=== PATIENT | female | born 1985 | race Caucasian/White ===

== ENCOUNTER 2022-06-21 23:38 | Inpatient (IN) ==
[2022-06-22] MEDS ORDERED: OXYTOCIN 30 UNITS/500 ML BAG IV PRN (00:07)
[2022-06-22] MEDS ORDERED: LACTATED RINGER'S 1,000 ML IV PRN (00:07)
[2022-06-22] MEDS ORDERED: LIDOCAINE 1% LOCAL 20 ML VIAL INFIL PRN (00:07)
[2022-06-22 00:39] LABS: Hematocrit (blood only) 32.3 % (37.0-47.0); Hemoglobin 10.3 g/dl (12.0-16.0); Mean Corpuscular Hemoglobin 25.4 pg (25.0-34.0); Mean Corpuscular Hgb Conc 31.9 g/dL (32.0-36.0); Mean Corpuscular Volume 79.8 fL (80.0-100.0); Mean Platelet Volume 11.9 fL (9.4-12.4); Platelet Count 230 K/uL (130-400); RDW Coefficient of Variation 15.1 % (11.5-14.5); RDW Standard Deviation 43.2 fL (36.4-46.3); Red Blood Count 4.05 M/uL (4.20-5.40); White Blood Count 14.66 K/ul (4.8-10.8)
[2022-06-22] MEDS: OXYTOCIN 30 UNITS/500 ML BAG IV PRN ×2 (02:05→02:35)
--- NOTE | 2022-06-22 02:37 | Delivery Summary ---
Vaginal Delivery Summary Date of Service June 22, 2022 Vaginal Delivery Summary and 3rd Degree LAC Spontaneous vaginal delivery patient arrived in active labor spontaneously and did not request pain medication 38+ weeks first baby records reviewed she progressed to fully dilated and then pushed for a short period of time delivering baby in occiput anterior position once the head was delivered there was a double nuchal cord that was tight this was clamped and cut prior to delivery of the body cord was then looped from the head gentle traction on the baby no excessive force easy delivery live vigorous female infant cord had already been clamped cord blood obtained placenta removed with gentle traction on inspection there was some significant tearing specifically 1/3 degree. Local anesthetic was injected into the appropriate areas and then 3-0 Vicryl for repair including repair of the rectal sphincter there was no extension into the mucosa vaginal bleeding from the uterus increase at this stage we did increase the Pitocin and then injected 0.25 mg of Hemabate into the cervix taking care to avoid intravascular injection this improved bleeding at the end of the procedure sponge instrument counts correct estimated blood loss 400 mL [facility] Vaginal Delivery Charge Delivery Type Details: and 3rd Degree LAC
[2022-06-22] MEDS ORDERED: oxyCODONE/ACETAMINOPHEN 5mg/325mg TAB PO PRN (02:58)
[2022-06-22] MEDS ORDERED: DIPHTHERIA/TETANUS/PERTUSSIS 0.5mL SYR/VIAL (Age 7+yrs) IM ONE (02:58)
[2022-06-22] MEDS ORDERED: HYDROCORTISONE ACETATE 25 MG SUPP PR PRN (02:58)
[2022-06-22] MEDS ORDERED: BENZOCAINE 20% AER SPR 82.5 GM CAN EXT PRN (02:58)
[2022-06-22] MEDS ORDERED: CARBOPROST TROMETHAMINE 250 MCG/ML AMPUL IM ONE (02:58)
[2022-06-22] MEDS ORDERED: bisacodyL 10 MG SUPP PR PRN (02:58)
[2022-06-22] MEDS: IBUPROFEN 600 MG TAB PO PRN ×3 (03:18→12:51)
[2022-06-22 07:16] LABS: Hematocrit (blood only) 22.7 % (37.0-47.0); Hemoglobin 7.1 g/dl (12.0-16.0); Mean Corpuscular Hemoglobin 25.5 pg (25.0-34.0); Mean Corpuscular Hgb Conc 31.3 g/dL (32.0-36.0); Mean Corpuscular Volume 81.7 fL (80.0-100.0); Mean Platelet Volume 11.5 fL (9.4-12.4); Platelet Count 193 K/uL (130-400); RDW Coefficient of Variation 15.1 % (11.5-14.5); RDW Standard Deviation 45.4 fL (36.4-46.3); Red Blood Count 2.78 M/uL (4.20-5.40); White Blood Count 27.24 K/ul (4.8-10.8)
[2022-06-22] MEDS ORDERED: SODIUM CHLORIDE 0.9% 250 ML IV PRN (07:32)
[2022-06-22 07:43] LABS: Basophils # (auto) 0.04 K/uL (0-0.2); Basophils % (auto) 0.1 %; Eosinophils # (auto) 0.01 K/uL (0-0.50); Immature Granulocytes # (auto) 0.23 K/uL (0.01-0.20); Immature Granulocytes % (auto) 0.8 %; Lymphocytes % (auto) 7.3 %; Monocytes # (auto) 1.37 K/uL (0.11-0.59); Neutrophils # (auto) 23.59 K/uL (1.40-6.50); Neutrophils % (auto) 86.8 %; Polychromasia 1+
--- NOTE | 2022-06-22 07:43 | Obstetrical Progress Note ---
Date of Service June 22, 2022 Patient had approximately 400 mL of blood loss at delivery largely due to uterine atony her blood count this morning is 7.1 hemoglobin however she feels very uncomfortable and lightheaded when she sits up or stands and her heart rate has been running around 120 I did discuss and recommend the option of a blood transfusion as she was symptomatic with her low hemoglobin also it is also likely lower than it really appears that she had not only nausea but diarrhea prior to the delivery and then the blood loss so it might be hemoconcentrated at this stage I discussed risks of blood transfusion patient accepts we will plan to transfuse 2 units of packed red blood cells Results & Data Vital Signs (Past 12 Hours) Vital Signs Temp Pulse Resp BP Pulse Ox 06/22/22 00:25 97.9 F 20 06/22/22 07:38 113 H 100 06/22/22 07:33 120 H 100 06/22/22 07:28 121 H 100 06/22/22 07:27 118 H 148/70 H 06/22/22 07:23 119 H 100 06/22/22 07:18 116 H 100 06/22/22 07:13 100 06/22/22 07:13 107 H 06/22/22 07:13 120 H 140/69 06/22/22 07:08 124 H 100 06/22/22 07:03 123 H 100 06/22/22 06:58 100 06/22/22 06:58 118 H 06/22/22 06:58 122 H 169/89 H 06/22/22 06:53 113 H 100 06/22/22 06:48 127 H 100 06/22/22 06:43 118 H 100 06/22/22 06:42 121 H 128/59 L 06/22/22 06:38 115 H 100 06/22/22 06:33 116 H 100 06/22/22 06:28 116 H 100 06/22/22 06:27 113 H 125/67 06/22/22 06:23 128 H 100 06/22/22 06:18 119 H 100 06/22/22 06:12 137 H 120/65 06/22/22 05:57 106 H 123/72 06/22/22 05:42 99 H 125/67 06/22/22 05:25 122 H 105/61 06/22/22 04:41 104 H 108/68 06/22/22 04:26 123 H 100/70 06/22/22 04:11 120 H 96/55 L 06/22/22 03:56 123 H 104/55 L 06/22/22 03:41 123 H 105/74 06/22/22 03:26 113 H 112/67 06/22/22 03:08 129 H 107/72 06/22/22 03:03 127 H 111/69 06/22/22 03:00 129 H 110/68 06/22/22 02:53 121 H 116/54 L 06/22/22 02:48 129 H 110/56 L 06/22/22 02:43 123 H 126/73 06/22/22 02:38 127 H 94/56 L 06/22/22 02:33 126 H 98/57 L 06/22/22 02:28 121 H 128/64 06/22/22 02:23 118 H 123/69 06/22/22 02:16 125 H 125/74 06/21/22 23:52 88 142/71 H
[2022-06-22] MEDS: PRENATAL VITAMIN 1 TAB PO SCH (09:04)
[2022-06-22] MEDS: ACETAMINOPHEN 325 MG TAB PO PRN (09:04)
[2022-06-22] MEDS: DOCUSATE SODIUM 100 MG CAP PO SCH ×2 (09:04→20:22)
[2022-06-22 18:48] LABS: Hematocrit (blood only) 24.4 % (37.0-47.0); Hemoglobin 8.1 g/dl (12.0-16.0)
[2022-06-22] MEDS: MONTELUKAST SODIUM 10 MG TABLET PO SCH (20:22)
[2022-06-22] MEDS: HYDROcodone/ACETAMINOPHEN 10/325 TAB PO PRN (20:22)
[2022-06-22] MEDS ORDERED: ONDANSETRON INJ 2 MG/ML 2 ML VIAL ONE (20:34)
[2022-06-23] MEDS: ACETAMINOPHEN 325 MG TAB PO PRN (02:41)
[2022-06-23] MEDS: ONDANSETRON INJ 2 MG/ML 2 ML VIAL IV PRN ×2 (02:41→21:08)
[2022-06-23 06:30] LABS: Hematocrit (blood only) 22.3 % (37.0-47.0); Hemoglobin 7.4 g/dl (12.0-16.0); Mean Corpuscular Hemoglobin 26.7 pg (25.0-34.0); Mean Corpuscular Hgb Conc 33.2 g/dL (32.0-36.0); Mean Corpuscular Volume 80.5 fL (80.0-100.0); Mean Platelet Volume 11.1 fL (9.4-12.4); Platelet Count 149 K/uL (130-400); RDW Coefficient of Variation 15.2 % (11.5-14.5); RDW Standard Deviation 44.9 fL (36.4-46.3); Red Blood Count 2.77 M/uL (4.20-5.40)
--- NOTE | 2022-06-23 07:31 | Obstetrical Progress Note ---
Date of Service June 23, 2022 Assessment & Plan (1) Encounter for care and examination after delivery: H&H now 7.4/22.3. H&H 4hours posttransfusion was 8.1/24.3 will hold on any further transfusions as most symptoms are from her ongoing headache we will try Fioricet as narcotics have not been effective to resolve the headache. if the Fioricet does not work, will consult hospitalist for further evaluation. Subjective Ambulation: ambulating normally Voiding: no voiding problems Passing Gas:: Yes Diet Tolerance:: regular diet Lochia:: Small Feeding Type:: breast feeding (some formula) chief complaint this morning is the ongoing headache which she describes as starting like an ice pick behind her right eye and now is over her left eye and down the back of her neck. the IV zofran seems to have been the most effective med so far to reduce the headache. she ahs had percocet and vicodin which has dulled the headache but has not resolved it. she has been treated for headaches since age 16 through neurology in [place] but most recently prior to , with her PCP. triptans were not effective; Topamax had been somewhat effective but she had been on zofran and Emgolvy prior to which has been the most effective combination so far. But she stopped the Emgolvy because it became too expensive. she has been able to ambulate to the bathroom at this time after being transfused 2 units PRBC's. H&H this morning reviewed with the patient and her . not eating or drinking very much because of the headache. Review of Systems All systems reviewed & are unremarkable except as noted in HPI & below Physical Exam Constitutional WD/WN, vitals as above Psychiatric A+Ox3, euthymic affect Genitourinary OB Exam Abdomen: + fundal height Fundus: + firm and + relation to umbilicus (at U) Results & Data Vital Signs (Past 12 Hours) Vital Signs Temp Pulse Resp BP Pulse Ox O2 Del Method 06/23/22 00:30 97.9 F 79 16 121/77 95 Room Air 06/22/22 20:15 98.2 F 85 16 146/92 H 97 Room Air
[2022-06-23] MEDS: BUTALBITAL/ACETAMIN/CAFFEINE TAB PO PRN ×2 (08:03→09:25)
[2022-06-23] MEDS: DOCUSATE SODIUM 100 MG CAP PO SCH ×2 (09:27→20:28)
[2022-06-23] MEDS: PRENATAL VITAMIN 1 TAB PO SCH (09:27)
[2022-06-23] MEDS ORDERED: SODIUM CHLORIDE 0.9% 1000ML 1,000 ML IV ONE (09:28)
--- NOTE | 2022-06-23 09:40 | Hospitalist Consultation ---
Date of Consultation June 23, 2022 Assessment & Plan (1) Status migrainosus: Multifactorial, most likely due to acute on chronic anemia in context of labor/delivery as well as dehydration. Patient has had well controlled blood pressure throughout and post- course, thus low likelihood that pre-eclampsia is contributing to ongoing headache. Patient does report bilateral arm and feet numbness which is atypical per her migraines, although neuro exam reassuring. - checked CMP and Mg with abnormalities listed and addressed below - CT head w/o contrast without abnormalities - trend CBC this afternoon and H/H again in AM - will give 1L NSS bolus to address dehydration - will try Compazine 5mg IV x1 now - agree with Zofran PRN, PRN Ibuprofen, PRN Fioricet and PRN Hydrocodone/Acetaminophen - discontinued Acetaminophen and Percocet to avoid Tylenol overuse - can consider Mag sulfate infusion but will await Mag level first - can also consider Dexamethasone 10mg IV x1, although would hold on this unless above-mentioned treatments do not prove useful - patient will need to re-establish with Neurology as outpatient for reinstitution of Migraine ppx treatments (2) Hyponatremia: Na 126, unknown baseline. Suspect hypotonic hypovolemic hyponatremia in context of labor/delivery. May be contributing to migraine. - 1L NSS bolus as stated above - monitor BMP Q4H for next 24 hours, with goal increase 4-6mEq (3) Hypomagnesemia: Mg 1.4, in context of above. May also be contributing to migraine. - repleting with Mg sulfate 4gm - monitor in AM Plan Discussed recommendations with on-call OB-SOLAR PROCESS ENGINEER Dr. Bennett. Thank you for this interesting consult. We will continue to follow along with you. Supervising Physician Co-Signing Physician Notes Resident Physician Supervision Note: I independently interviewed and examined the patient and verified the kerns history and physical, reviewed labs and image studies and agree with resident findings and care plan. PP with h/o Migraine here with status Migrainous - Reviewed work up. IV magnesium and compazine. Also received one dose IV morphine. Hyponatremia - Hypervolemia from PP status and electrolyte loss from vomiting. Recommend Free water restriction. recheck bmp later today. Arm paresthesia - work up negative for central cause. Possibly nerve compression from increased fluid volume. will reassess. History of Present Illness Reason for Consultation: intractable migraine Requesting Physician: Dr. Molina Attending Physician: Robb Nichols MD, FACOG History of Present Illness Shannan Reeves is a 37yo female, with recent on 06/22 in the AM, with associated third degree vaginal laceration, 400mL estimate blood loss, and need for 2 units pRBC transfusions on 06/22, who is suffering from severe intractable headache. Patient reports 10/10 headache, starting above right eye immediately after delivery and spreading throughout head and radiating down posterior neck, with associated nausea, light/sound sensitivity, bilateral arm numbness and bilateral toe numbness. Patient has been given Tylenol x2, Ibuprofen 600mg x2, Percocet 5-235mg x1, and Hydrocodone-Acetaminophen x1, without improvement in headache. Did get Zofran x1 early on 06/23 which helped temporarily but symptoms have now recurred and are severe. Patient has suffered from migraines since age 16. Before patient was doing well on Emgality injections but had to stop them shortly before due to cost. Was also doing well on Topamax for ppx and was having migraines very infrequently. Had to stop this medication before as well. In terms of abortive therapy, Tylenol/Ibuprofen/triptans have provided little benefit. Patient reports that Vicodin with Dr. Ernst has sometimes been helpful for abortive therapy, but as mentioned above did not have benefit with trial of Vicodin yesterday. Throughout patient has not had migraines, until current episode. [facility]. Of note patient required 2 units pRBCs after delivery with improvement of Hgb from 7.1 to 8.1. Hgb down to 7.4 this morning. Per patient and nursing, post- vaginal bleeding has been decreasing and mild. Patient has also had minimal fluid intake in context of labor/delivery as well as intractable migraine. Of note patient does not usually have arm/leg numbness with migraines. Hospitalist was consulted for intractable migraine. Allergies Allergy/AdvReac Type Severity Reaction Status Date / Time homatropine [From Hycodan] Allergy Verified 06/20/22 12:23 hydrocodone [From Hycodan] Allergy Verified 06/20/22 12:23 Penicillins Allergy Verified 06/20/22 12:23 Home Medications Medication Instructions Recorded Confirmed Type docosahexaenoic acid [ DHA] PO 07/26/21 06/20/22 History ferrous sulfate [Iron (ferrous PO 06/13/22 06/20/22 History sulfate)] magnesium PO 06/13/22 06/20/22 History Patient History Medical History (Updated 06/23/22 @ 10:30 by Iron Sena MD) Migraine without aura Seasonal allergies Ulcer Surgical History H/O oral surgery History of appendectomy Family History (Updated 07/26/21 @ 14:16 by Briseida Gramajo DO) Mother Myocardial infarction Grandmother Osteoporosis Denies family history of Ovarian cancer Prostate cancer Breast cancer Colorectal cancer Social History (Updated 11/29/21 @ 13:49 by Oxana Chisholm) Smoking Status: Never smoker Second Hand Exposure: No; Do You Dip or Chew Tobacco: No; Hx Alcohol Use: No Hx Substance Use: No Preferred Language: Malay Aircraft Quality Control Inspector Required: No Beliefs That Will Affect Care: None marital status: marital status details: Obey ([id number]) [phone] Current Living Situation: Spouse Current Living Situation Comment: lives with FOB no pets,. current occupational status: employed current occupation: [employer] How many Children do You have: 0 Other Information That Helps Us Care for You: No Childhood Exposure to Second-Hand Smoke: No Diet: regular caffeine: Yes Dental Care, Regularly: Yes Physical Activity Frequency: 3-4 Times per Week Seatbelt Use: always Sunscreen Use: Yes Review of Systems Review of Systems: All systems reviewed & are unremarkable except as noted in HPI & below Physical Exam Physical Exam: General: A&Ox3. NAD. Cooperative. HEENT: Atraumatic, normocephalic. Pulm: CTAB A&P. -wheezes, -rales, -rhonchi. Symmetrical chest rise. No increase work of breathing. No respiratory distress. Cardiac: RRR, -mrg. Radial pulses intact and symmetrical. Abdominal: soft, non-tender, non-distended, BS x 4 Extremities: +non-pitting edema of feet and hands Neurologic: patellar DTR's 2+ bilat, sensation intact and PERRL, EOMI, accommodation nl, no face palsy, no dysarthria normal touch/pain/proprioception, deep tendon reflexes 2+ bilaterally, moves all extremities and awake; no focal motor deficits Speech / Cognition: normal speech Motor/Sensory: no tremor Results & Data Results & Data Vital Signs (Past 12 Hours) Vital Signs Temp Pulse Resp BP Pulse Ox O2 Del Method 06/23/22 00:30 36.6 C 79 16 121/77 95 Room Air Resident Activity Tracking Resident Involvement: Resident Care Provided Care Provided: Adult Hospital Medicine
[2022-06-23] MEDS ORDERED: PROCHLORPERAZINE 5 MG in SYRINGE 4 ML IV ONE (09:45)
[2022-06-23 09:54] LABS: Albumin Globulin Ratio 1.1 (0.9-2); Albumin Level 2.4 gm/dl (3.4-5.0); BUN Creatinine Ratio 26.5 (10-20); Bilirubin,Total 0.2 mg/dl (0.2-1.0); Calcium 7.1 mg/dl (8.6-10.3); Creatinine Clr Calc Pharmacy 195.1 ml/min; Est GFR (African American) 145.3 ml/min; Est GFR (Non-African American) 125.3 ml/min; Globulin 2.2 gm/dl (2.5-4.0); Magnesium 1.4 mg/dl (1.7-2.4); Potassium 3.8 mmol/L (3.5-5.1); Total Protein 4.6 gm/dl (6.0-8.3)
--- NOTE | 2022-06-23 10:10 | CT Scan Report ---
CT OF THE HEAD WITHOUT CONTRAST CLINICAL HISTORY: Intractable headache. COMPARISON STUDY: No previous studies for comparison. CT DOSE: 601.98 mGy.cm TECHNIQUE: Helical axial images of the head were obtained without IV contrast. Automated exposure con trol was utilized for the study. A dose lowering technique was utilized adhering to the principles o f ALARA. FINDINGS: No acute intracranial hemorrhage, midline shift or mass effect is present. The ventricular system is unremarkable. The basal cisterns are patent. No extra-axial collections are present. There are no findings to suggest acute dural sinus thrombosis or acute territorial infarct. No significant calvarial abnormalities are present. Visualized portions of the sinuses and mastoid air cells are chelsie ar. IMPRESSION: No acute intracranial findings. ACT 112: Negative or not required by law. Electronically signed by: Tera Wasserman M.D. 06/23/2022 10:09 AM
[2022-06-23] MEDS ORDERED: MoRPHine SULFATE 4 MG/ML 1 ML CARP\\VIAL IV STA ×2 (10:28→14:47)
--- NOTE | 2022-06-23 10:41 | Electrocardiogram Report ---
Test Reason : Blood Pressure : / mmHG Vent. Rate : 075 BPM Atrial Rate : 075 BPM P-R Int : 152 ms QRS Dur : 088 ms QT Int : 394 ms P-R-T Axes : 047 039 018 degrees QTc Int : 439 ms Normal sinus rhythm Left atrial enlargement Nonspecific T wave abnormality Abnormal ECG No previous ECGs available Confirmed by Claus Castanon ([id number]) on 06/23/2022 10:41:24 AM Referred By: Robb Nichols Confirmed By:Claus Castanon
[2022-06-23] MEDS: MAGNESIUM SULFATE / D5W 1 GM/100 ML BAG IV SCH ×4 (11:12→17:29)
[2022-06-23 16:41] LABS: Hematocrit (blood only) 21.6 % (37.0-47.0); Hemoglobin 7.3 g/dl (12.0-16.0); Mean Corpuscular Hemoglobin 26.8 pg (25.0-34.0); Mean Corpuscular Hgb Conc 33.8 g/dL (32.0-36.0); Mean Corpuscular Volume 79.4 fL (80.0-100.0); Platelet Count 169 K/uL (130-400); RDW Coefficient of Variation 15.4 % (11.5-14.5); RDW Standard Deviation 44.7 fL (36.4-46.3); Red Blood Count 2.72 M/uL (4.20-5.40); White Blood Count 13.28 K/ul (4.8-10.8)
[2022-06-23 16:54] LABS: Anion Gap 5 (3-11); BUN Creatinine Ratio 24.4 (10-20); Blood Urea Nitrogen 10 mg/dl (6-23); Calcium 6.8 mg/dl (8.6-10.3); Carbon Dioxide 24 mmol/L (21-32); Chloride 93 mmol/L (98-107); Creatinine Clr Calc Pharmacy 233.1 ml/min; Est GFR (African American) > 150.0 ml/min; Est GFR (Non-African American) 132.9 ml/min; Glucose 76 mg/dl (70-99(Fasting)); Potassium 3.4 mmol/L (3.5-5.1); Sodium 122 mmol/L (136-145)
[2022-06-23] MEDS ORDERED: POTASSIUM CHLORIDE CRTAB 20 MEQ TABCR PO STA (16:59)
[2022-06-23] MEDS ORDERED: bisacodyL 5 MG TABEC PO SCH (20:00)
[2022-06-23] MEDS: MONTELUKAST SODIUM 10 MG TABLET PO SCH (20:28)
[2022-06-23] MEDS: HYDROcodone/ACETAMINOPHEN 10/325 TAB PO PRN (21:08)
--- NOTE | 2022-06-24 06:35 | Obstetrical Progress Note ---
Date of Service June 24, 2022 Assessment & Plan (1) Hypomagnesemia: (2) Hyponatremia: (3) Encounter for care and examination after delivery: (4) Status migrainosus: Plan Shannan is a 37 y/o female who is PPD #2 following delivery at 38w2d. -Meeting milestones -A negative/GBS negative/Rubella immune -Vital signs stable, hemoglobin this morning 7.3 (same as Hgb yesterday) -Hospitalist team consulted for intractable headache, appreciate recommendations -Continue routine care Admission and Anticipated Discharge Date Admission Date: June 22, 2022 Supervising Physician Co-Signing Physician Notes Resident Physician Supervision Note: I interviewed and examined the patient. Discussed with Dr. Cantu and agree with findings and plan as documented in the note. Any exceptions or clarifications are listed here: [None] Documented By: Bridgett Bennett MD, FACOG Subjective Shannan is a 37 y/o female who is PPD #2 following delivery at 38w2d. She has a history of migraines, has had an intractable headache for the past day. She received 2 units PRBCs on 06/22. She reports feeling slight improvement this morning regarding her headache- still has pressure behind her eyes and light/sound sensitivity. Has been tolerating meals. Has not ambulated much so patient is unsure if ambulation is causing lightheadedness, dizziness. Review of Systems Constitutional: no fever, no chills and no sweats Respiratory: no cough, no dyspnea and no wheezing Cardiovascular: no chest pain, no palpitations and no calf pain Genitourinary: no dysuria Physical Exam Constitutional: WD/WN, vitals as above no acute distress Respiratory: no respiratory distress Auscultation: lungs clear to auscultation bilaterally; no rales, no rhonchi and no wheezes Cardiovascular: RRR, no murmur, no edema Extremities: no calf tenderness and no edema Negative Manuel's sign bilaterally. Gastrointestinal (Abdomen): Inspection/Auscultation: normal bowel sounds Genitourinary: Uterine fundus firm, palpable below the umbilicus. Results & Data Vital Signs (Past 12 Hours) Vital Signs Temp Pulse Resp BP Pulse Ox O2 Del Method 06/24/22 04:00 Room Air 06/24/22 04:00 36.5 C 88 18 114/75 98 Room Air 06/23/22 23:02 37.2 C 88 18 114/73 95 Room Air 06/23/22 21:00 89 20 128/78 96 Room Air 06/23/22 19:34 36.7 C 83 18 116/75 96 Room Air Resident Activity Tracking Resident Involvement: Resident Care Provided Care Provided: OB Delivery
[2022-06-24 06:56] LABS: Hematocrit (blood only) 21.6 % (37.0-47.0); Hemoglobin 7.3 g/dl (12.0-16.0)
[2022-06-24 07:07] LABS: Anion Gap 5 (3-11); BUN Creatinine Ratio 20.6 (10-20); Blood Urea Nitrogen 7 mg/dl (6-23); Calcium 6.8 mg/dl (8.6-10.3); Carbon Dioxide 23 mmol/L (21-32); Chloride 91 mmol/L (98-107); Creatinine Clr Calc Pharmacy 281.1 ml/min; Est GFR (African American) > 150.0 ml/min; Est GFR (Non-African American) 141.4 ml/min; Glucose 82 mg/dl (70-99(Fasting)); Magnesium 1.6 mg/dl (1.7-2.4); Potassium 3.9 mmol/L (3.5-5.1); Sodium 119 mmol/L (136-145)
--- NOTE | 2022-06-24 07:22 | Hospitalist Progress Note ---
Date of Service June 24, 2022 Assessment & Plan (1) Status migrainosus: Plan: 37F , now PPD #2 s/p @38.2 weeks. Consulted for management of status migrainosus. Still following, managing new onset hyponatremia. Status migrainosus Multifactorial, most likely due to acute on chronic anemia in context of labor/delivery as well as dehydration. Patient has had well controlled blood pressure throughout and post- course, thus low likelihood that pre-eclampsia is contributing to ongoing headache. Patient does report bilateral arm and feet numbness which is atypical per her migraines, although neuro exam reassuring. - checked CMP and Mg with abnormalities listed and addressed below - CT head w/o contrast without abnormalities - s/p 1L NSS bolus to address dehydration, Compazine 5 mg IV - s/p Zofran PRN, PRN Ibuprofen, PRN Fioricet and PRN Hydrocodone/Acetaminophen - recommend reestablishing with Neurology as outpatient for reinstitution of Migraine ppx treatments Hyponatremia Na 126, unknown baseline. Suspect hypotonic hypovolemic hyponatremia in context of labor/delivery. May be contributing to migraine. - S/p 1L NSS bolus as stated above - Na decreased to 119 today. - Serum osm 244. Ur osm 571. Ur Na 106. Suspect SIADH * Fluid restriction 1L * 1g Na tabs * BMP q4h x24h Hypomagnesemia Mg 1.4, in context of above. May also be contributing to migraine. - Trend daily. Replete as needed. (2) Hyponatremia: (3) Hypomagnesemia: (4) Encounter for care and examination after delivery: Plan Shannan is a 37 y/o female who is PPD #2 following delivery at 38w2d. Admission and Anticipated Discharge Date Admission Date: June 22, 2022 Supervising Physician Co-Signing Physician Notes I personally examined the patient and verified all kerns points of history and exam, discussed case, and agree with decision making with Dr Moralez dizzy, nausea from dizzy. vomiting from nausea from dizzy. headache down to a 2/10 though. no significant ongoing bleeding vitals noted nad heent nc at mmm breathing unlabored no accessory muscles good effort skin no rashes no pallor or icterus neuro no focal deficits hyponatremia - appearing to be siadh mediated - ?related to hemorrhage, pain, total milieu. pituitary hypoperfusion seems unlikely on review of situation surrounding hemorrhage but has to remain on ddx until situation resolves. fluid restrict, salt tabs, follow closely. AM cortisol to f/u on low random (nonspecific) otherwise as above Subjective No acute events overnight. Patient is seated in bed with at bedside. She reports improved migraine headache, but now reports worsened nausea. She does endorse some light sensitivity, and lightheadedness. Review of Systems Review of Systems: All systems reviewed & are unremarkable except as noted in HPI & below Physical Exam Physical Exam: General: Tired appearing woman in mild distress HEENT: PERRLA. Normal conjunctiva, anicteric sclera. Oropharynx normal. Respiratory: Normal respiratory effort, slight basilar crackles. Cardiovascular: RRR. Systolic murmur. No gallops or rubs. No pedal edema. GI: Soft abdomen with normal bowel sounds heard on auscultation. Nontender x4 quadrants Neuro: Alert and oriented x3. Results & Data Results & Data Vital Signs (Past 12 Hours) Vital Signs Temp Pulse Resp BP Pulse Ox O2 Del Method 06/24/22 04:00 Room Air 06/24/22 04:00 36.5 C 88 18 114/75 98 Room Air 06/23/22 23:02 37.2 C 88 18 114/73 95 Room Air 06/23/22 21:00 89 20 128/78 96 Room Air 06/23/22 19:34 36.7 C 83 18 116/75 96 Room Air Resident Activity Tracking Resident Involvement: Resident Care Provided Care Provided: Adult Hospital Medicine
[2022-06-24] MEDS: DOCUSATE SODIUM 100 MG CAP PO SCH ×2 (08:14→20:58)
[2022-06-24] MEDS: PRENATAL VITAMIN 1 TAB PO SCH (08:15)
[2022-06-24] MEDS: IBUPROFEN 600 MG TAB PO PRN ×3 (08:15→21:32)
[2022-06-24] MEDS: BUTALBITAL/ACETAMIN/CAFFEINE TAB PO PRN ×2 (08:15→14:36)
[2022-06-24] MEDS: MAGNESIUM SULFATE / D5W 1 GM/100 ML BAG IV SCH ×2 (08:16→10:27)
[2022-06-24] MEDS: ONDANSETRON INJ 2 MG/ML 2 ML VIAL IV PRN (09:48)
[2022-06-24 11:27] LABS: BUN Creatinine Ratio 14.6 (10-20); Creatinine Clr Calc Pharmacy 199.1 ml/min; Est GFR (African American) 146.3 ml/min; Est GFR (Non-African American) 126.2 ml/min; Potassium 3.7 mmol/L (3.5-5.1)
[2022-06-24] MEDS ORDERED: SODIUM CHLORIDE 1 GM TABLET PO STA ×2 (11:51→16:12)
[2022-06-24 15:59] LABS: BUN Creatinine Ratio 14.3 (10-20); Calcium 7.1 mg/dl (8.6-10.3); Creatinine Clr Calc Pharmacy 195.1 ml/min; Est GFR (African American) 145.3 ml/min; Est GFR (Non-African American) 125.3 ml/min; Potassium 3.9 mmol/L (3.5-5.1)
--- NOTE | 2022-06-24 17:47 | Billing Data ---
Date of Service June 24, 2022 Coding Level of Care Code 26653 SUB INP/OBS CARE
[2022-06-24 18:41] LABS: Calcium 7.2 mg/dl (8.6-10.3); Creatinine Clr Calc Pharmacy 191.2 ml/min; Est GFR (African American) 144.3 ml/min; Est GFR (Non-African American) 124.5 ml/min; Potassium 4.1 mmol/L (3.5-5.1)
[2022-06-24] MEDS: MONTELUKAST SODIUM 10 MG TABLET PO SCH (22:09)
[2022-06-24] MEDS ORDERED: KETOROLAC TROMETHAMINE 15 MG/ML VIAL IV PRN (22:29)
[2022-06-24] MEDS: ACETAMINOPHEN 500 MG TAB PO PRN (22:39)
[2022-06-24 23:16] LABS: Anion Gap 6 (3-11); BUN Creatinine Ratio 16.3 (10-20); Blood Urea Nitrogen 7 mg/dl (6-23); Calcium 7.2 mg/dl (8.6-10.3); Carbon Dioxide 23 mmol/L (21-32); Chloride 90 mmol/L (98-107); Creatinine Clr Calc Pharmacy 222.3 ml/min; Est GFR (African American) > 150.0 ml/min; Est GFR (Non-African American) 130.9 ml/min; Glucose 99 mg/dl (70-99(Fasting)); Potassium 3.6 mmol/L (3.5-5.1); Sodium 119 mmol/L (136-145)
[2022-06-25 02:44] LABS: BUN Creatinine Ratio 15.2 (10-20); Calcium 6.9 mg/dl (8.6-10.3); Creatinine Clr Calc Pharmacy 207.8 ml/min; Est GFR (African American) 148.3 ml/min; Potassium 3.9 mmol/L (3.5-5.1)
[2022-06-25] MEDS: IBUPROFEN 600 MG TAB PO PRN ×4 (05:32→23:53)
[2022-06-25] MEDS: ACETAMINOPHEN 500 MG TAB PO PRN ×3 (06:08→23:48)
--- NOTE | 2022-06-25 06:22 | Obstetrical Progress Note ---
Date of Service June 25, 2022 Assessment & Plan (1) Hypomagnesemia: (2) Hyponatremia: (3) Encounter for care and examination after delivery: (4) Status migrainosus: Plan Shannan is a 37 y/o female who is PPD #3 following delivery at 38w2d. -Meeting milestones -A negative/GBS negative/Rubella immune -Vital signs stable, hemoglobin yesterday 7.3 -Due to right calf pain this morning, will order right LE doppler -Hospitalist team consulted for intractable headache, appreciate recommendations -Continue routine care Admission and Anticipated Discharge Date Admission Date: June 22, 2022 Supervising Physician Co-Signing Physician Notes Resident Physician Supervision Note: I interviewed and examined the patient. Discussed with Dr. Cantu and agree with findings and plan as documented in the note. Any exceptions or clarifications are listed here: PPD#3. From OB standpoint - doing well . Her headache is rated 2/10 this morning. She feels like it comes and goes. Ate dinner last night, crackers this morning, held this down well. Blood pressure and labs to r/o preeclampsia have been normal. Appreciate consultation and recommendations from medicine team for intractible headache. Documented By: Briseida Gramajo, DO Subjective Shannan is a 37 y/o female who is PPD #3 following delivery at 38w2d. She has a history of migraines, has had an intractable headache for the past few days She received 2 units PRBCs on 06/22. She reports that headache was a bit better last night but is now worse.- Has been tolerating meals, is currently on fluid restriction. Notes that she had a shower last night which helped her to feel better. She also states that she "can't feel" when she is having a bowel movement while laying in bed. Has some pain in her right calf this morning. Review of Systems Constitutional: no fever, no chills and no sweats Respiratory: no cough, no dyspnea and no wheezing Cardiovascular: no chest pain, no palpitations and no calf pain Genitourinary: no dysuria Physical Exam Constitutional: WD/WN, vitals as above no acute distress Respiratory: no respiratory distress Auscultation: lungs clear to auscultation bilaterally; no rales, no rhonchi and no wheezes Cardiovascular: RRR, no murmur, no edema Extremities: + calf tenderness (right calf pain); no edema Gastrointestinal (Abdomen): Inspection/Auscultation: normal bowel sounds Skin: no rashes, warm and dry Genitourinary: Uterine fundus firm, palpable below umbilicus Results & Data Vital Signs (Past 12 Hours) Vital Signs Temp Pulse Resp BP Pulse Ox O2 Del Method 06/25/22 04:00 37.1 C 76 16 112/77 98 Room Air 06/24/22 23:10 37.0 C 79 16 116/76 95 Room Air 06/24/22 19:15 37.2 C 79 20 110/75 95 Room Air Resident Activity Tracking Resident Involvement: Resident Care Provided Care Provided: OB Delivery
[2022-06-25 08:20] LABS: BUN Creatinine Ratio 15.2 (10-20); Creatinine Clr Calc Pharmacy 207.8 ml/min; Est GFR (African American) 148.3 ml/min; Potassium 3.7 mmol/L (3.5-5.1)
[2022-06-25] MEDS: DOCUSATE SODIUM 100 MG CAP PO SCH ×2 (08:50→21:19)
[2022-06-25] MEDS: PRENATAL VITAMIN 1 TAB PO SCH (08:50)
[2022-06-25 08:58] LABS: Magnesium 1.5 mg/dl (1.7-2.4)
--- NOTE | 2022-06-25 09:28 | Ultrasound Report ---
US venous doppler LE RT HISTORY: 37 years-old Female right calf pain, acute pain and swelling of the right lower leg COMPARISON: None TECHNIQUE: Multiple real-time sonographic images of the right lower extremity deep venous structures were obtained assessing grayscale appearance, color and spectral flow. FINDINGS: Normal flow, compressibility, phasicity and augmentation. IMPRESSION: No sonographic evidence of deep venous thrombosis. ACT 112: Negative or not required by law. The above report was generated using voice recognition software. It may contain grammatical, syntax o r spelling errors. Electronically signed by: Grzegorz Lopez M.D. 06/25/2022 9:27 AM
[2022-06-25] MEDS ORDERED: GADOBUTROL 65ML VIAL IV ONE (09:59)
--- NOTE | 2022-06-25 10:09 | Hospitalist Progress Note ---
Date of Service June 25, 2022 Assessment & Plan (1) Hyponatremia: Plan: 37F , now PPD #2 s/p @38.2 weeks. Consulted for management of status migrainosus. Still following, managing new onset hyponatremia. Hyponatremia Na 126, unknown baseline. Suspect hypotonic hypovolemic hyponatremia in context of labor/delivery. May be contributing to migraine. - S/p 1L NSS bolus as stated above - Na decreased to 119 today. 120 today s/p 3g Na tabs. - Serum osm 244. Ur osm 571. Ur Na 106. Suspect SIADH. Ordered cortisol -AM cortisol severely decreased at 0.71. Ordered brain pituitary MRI, labs (ACTH, free T3, T4, prolactin). * Continue fluid restriction 1L * Na tabs 2g tid * Continue BMP q4h x24h * MRI report, await pending. SIADH -Suspect due to severely concentrated urine, in the context of acute hyponatremi a. -Initially managed with sodium tablets 3 g total for 24 hours. -Serum sodium improved only slightly to 120, from 119. -Diagnostic work-up revealed severely low serum cortisol of 0.71. Additional l abs ordered, which are now pending. 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 * ACTH, free T3, free T4, prolactin labs pending * Endocrinology consult placed. Awaiting recommendations regarding management. Pituitary apoplexy -Discovered incidentally. Initially consulted for status migrainosus. Hyponatremia presented on PPD #2 (estimated blood loss 800 mL). No hypotension, or lethargy. -SIADH suspect patient after concentrated urine. Pituitary MRI ordered after severely low serum cortisol discovered on a.m. labs. -Endocrinology subsequently consulted Status migrainosus Multifactorial, most likely due to acute on chronic anemia in context of labor/delivery as well as dehydration. Patient has had well controlled blood pressure throughout and post- course, thus low likelihood that pre-eclampsia is contributing to ongoing headache. Patient does report bilateral arm and feet numbness which is atypical per her migraines, although neuro exam reassuring. - checked CMP and Mg with abnormalities listed and addressed below - CT head w/o contrast without abnormalities - s/p 1L NSS bolus to address dehydration, Compazine 5 mg IV - s/p Zofran PRN, PRN Ibuprofen, PRN Fioricet and PRN Hydrocodone/Acetaminophen - recommend reestablishing with Neurology as outpatient for reinstitution of Jesus moshe ppx treatments. Hypomagnesemia Mg 1.4, in context of above. May also be contributing to migraine. - Trend daily. Replete as needed. (2) SIADH (syndrome of inappropriate ADH production): (3) Hypomagnesemia: (4) Encounter for care and examination after delivery: (5) Status migrainosus: Abram Campbell is a 37 y/o female who is PPD #2 following delivery at 38w2d. Admission and Anticipated Discharge Date Admission Date: June 22, 2022 Supervising Physician Co-Signing Physician Notes I personally examined the patient and verified all kerns points of history and exam, discussed case, and agree with decision making with Dr Moralez feeling better headache less less dizzy eating better. Discussed with endocrinology. called pcp to update personally Vitals noted, in general she is awake and alert pleasant no distress. HEENT normocephalic atraumatic mucous membranes moist. Breathing unlabored no accessory muscle use good effort. Skin shows no rashes no pallor or icterus. 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 Start hydrocortisone and Synthroid. Discussed with endocrinology as far as initial management and they will have her pipelines for follow-up. Discussed with PCP for overall follow-up, follow-up on hyponatremia (he will be checking labs on Friday assuming she goes home tomorrow) and to follow-up next week. Extensive discussion with patient, , motheranswered all questions the best my ability. Subjective Patient subjectively improved overnight. Denies dyspnea, photosensitivity, chest pain, headache. Still reports some dizziness, though with significant improvement. She denies leg pain at rest or on ambulation. Review of Systems Review of Systems: All systems reviewed & are unremarkable except as noted in HPI & below Physical Exam Physical Exam: General: No acute distress HEENT: PERRLA. Normal conjunctiva, anicteric sclera. Oropharynx normal. Respiratory: Normal respiratory effort, slight basilar crackles. Cardiovascular: RRR. Systolic murmur. No gallops or rubs. Right LE edema. GI: Soft abdomen with normal bowel sounds heard on auscultation. Nontender x4 quadrants Neuro: Alert and oriented x3. Results & Data Results & Data Vital Signs (Past 12 Hours) Vital Signs Temp Pulse Resp BP Pulse Ox O2 Del Method 06/25/22 07:50 36.9 C 81 18 121/76 94 Room Air 06/25/22 04:00 37.1 C 76 16 112/77 98 Room Air 06/24/22 23:10 37.0 C 79 16 116/76 95 Room Air Resident Activity Tracking Resident Involvement: Resident Care Provided Care Provided: Adult Hospital Medicine
[2022-06-25] MEDS: MAGNESIUM SULFATE / D5W 1 GM/100 ML BAG IV SCH ×2 (10:38→12:24)
[2022-06-25] MEDS: SODIUM CHLORIDE 1 GM TABLET PO SCH ×3 (10:39→21:19)
--- NOTE | 2022-06-25 11:44 | Magnetic Resonance Report ---
MR brain pituitary wo/w con HISTORY: 37 years-old Female ?hypopituitary, Be's subcutaneous nodule with migraine headaches COMPARISON: Head CT 06/23/2022 TECHNIQUE: Multiplanar multisequence MRI of the brain was obtained both with and without the use of Laura covingtonvist utilizing pituitary protocol. FINDINGS: No restricted diffusion. No acute intracranial hemorrhage, midline shift, abnormal extra axial collec tion, hydrocephalus or intra-axial mass. There is no pathologic blooming artifact on the T2*series. T here is symmetrically increased FLAIR signal within the hypothalamus, optic chiasm and adjacent optic tracts seen best on the coronal T2 FLAIR series, notably images 11 and 12 of series 7. There is othe rwise normal volume and signal of the brain parenchyma. The cerebral venous sinuses and major arterial flow voids appear patent. Skull, orbits and soft tissu es are unremarkable. Trace mastoid effusions with mild mucosal thickening of the paranasal sinuses. S igmoidal bone and spurring of the nasal septum. The pituitary gland is enlarged demonstrating periphe ral enhancement measuring 1.5 x 1.2 x 0.9 cm. There is adjacent enhancement of the hypothalamus. Ther e is mildly increased T2/FLAIR signal of the pituitary gland with mass effect upon the adjacent optic chiasm. IMPRESSION: 1. 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 2. Associated increased T2/FLAIR signal within the adjacent hypothalamus, slightly compressed optic c hiasm and optic tracks, likely related to the same etiology. ACT 112: Negative or not required by law. The above report was generated using voice recognition software. It may contain grammatical, syntax o r spelling errors. Electronically signed by: Grzegorz Lopez M.D. 06/25/2022 11:43 AM
[2022-06-25 12:26] LABS: BUN Creatinine Ratio 15.6 (10-20); Calcium 7.3 mg/dl (8.6-10.3); Creatinine Clr Calc Pharmacy 212.4 ml/min; Est GFR (African American) 149.4 ml/min; Est GFR (Non-African American) 128.9 ml/min; Potassium 3.6 mmol/L (3.5-5.1)
[2022-06-25] MEDS: BUTALBITAL/ACETAMIN/CAFFEINE TAB PO PRN (12:29)
[2022-06-25 12:42] LABS: T3 Free 2.62 pg/ml (2.3-4.2)
[2022-06-25 12:53] LABS: Prolactin 4.1 ng/ml
[2022-06-25] MEDS ORDERED: HYDROCORTISONE 10 MG TAB PO STA (14:26)
[2022-06-25 15:52] LABS: BUN Creatinine Ratio 12.5 (10-20); Calcium 7.8 mg/dl (8.6-10.3); Creatinine Clr Calc Pharmacy 199.1 ml/min; Est GFR (African American) 146.3 ml/min; Est GFR (Non-African American) 126.2 ml/min; Potassium 3.9 mmol/L (3.5-5.1)
[2022-06-25] MEDS ORDERED: HYDROCORTISONE 10 MG TAB PO ONE (16:49)
--- NOTE | 2022-06-25 16:58 | Billing Data ---
Date of Service June 25, 2022 Coding Level of Care Code 48046 SUB INP/OBS CARE
[2022-06-25 19:54] LABS: BUN Creatinine Ratio 8.4 (10-20); Calcium 7.8 mg/dl (8.6-10.3); Creatinine Clr Calc Pharmacy 115.2 ml/min; Est GFR (African American) 105.1 ml/min; Est GFR (Non-African American) 90.7 ml/min; Potassium 4.2 mmol/L (3.5-5.1)
[2022-06-25] MEDS: MONTELUKAST SODIUM 10 MG TABLET PO SCH (21:19)
[2022-06-25 23:18] LABS: BUN Creatinine Ratio 13.8 (10-20); Creatinine Clr Calc Pharmacy 147.1 ml/min; Est GFR (African American) 132.4 ml/min; Est GFR (Non-African American) 114.2 ml/min; Potassium 4.5 mmol/L (3.5-5.1)
[2022-06-26 04:24] LABS: BUN Creatinine Ratio 16.4 (10-20); Calcium 7.5 mg/dl (8.6-10.3); Creatinine Clr Calc Pharmacy 173.8 ml/min; Est GFR (African American) 139.9 ml/min; Est GFR (Non-African American) 120.7 ml/min; Potassium 4.3 mmol/L (3.5-5.1)
[2022-06-26] MEDS ORDERED: LEVOTHYROXINE SODIUM 75 MCG TABLET PO SCH ×2 (06:30→11:30)
--- NOTE | 2022-06-26 06:33 | Obstetrical Progress Note ---
Date of Service June 26, 2022 Assessment & Plan (1) Hypomagnesemia: (2) Hyponatremia: (3) Encounter for care and examination after delivery: (4) Status migrainosus: Plan Shannan is a 37 y/o female who is PPD #4 following delivery at 38w2d. 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 -Meeting milestones -A negative/GBS negative/Rubella immune -Vital signs stable -Due to right calf pain yesterday, completed R LE Doppler (negative for DVT) -Hospitalist team consulted, appreciate recommendations. Will require endocrinology follow up for her Be's diagnosis. -Continue routine care -From OB perspective, patient stable for d/c. Admission and Anticipated Discharge Date Admission Date: June 22, 2022 Supervising Physician Co-Signing Physician Notes Patient seen with resident and agree with the above findings and plan. Medicine team currently arranging outpatient care for Be's with likely plan for discharge today. Subjective Shannan is a 37 y/o female who is PPD #4 following delivery at 38w2d. She has a history of migraines, has had an intractable headache for the past few days She received 2 units PRBCs on 06/22. Today she is feeling better, had a headache last night but improved. Has been able and eat regular food- is hoping to be able to have more liquids today. She was ambulating around the unit this morning. No additional calf pain today. Review of Systems Constitutional: no fever, no chills and no sweats Respiratory: no cough, no dyspnea and no wheezing Cardiovascular: no chest pain, no palpitations and no calf pain Genitourinary: no dysuria Physical Exam Constitutional: WD/WN, vitals as above no acute distress Eyes: Anicteric sclera Respiratory: no respiratory distress good aeration Cardiovascular: Regular heart rate, limbs well perfused. Bilateral lower extremity edema. Gastrointestinal (Abdomen): Inspection/Auscultation: normal bowel sounds Skin: no rashes, warm and dry Genitourinary: Uterine fundus firm, palpable below umbilicus Results & Data Vital Signs (Past 12 Hours) Vital Signs Temp Pulse Resp BP Pulse Ox O2 Del Method 06/26/22 04:35 36.9 C 86 20 125/77 95 Room Air 06/25/22 23:23 37.3 C 92 H 20 117/72 97 Room Air 06/25/22 19:40 37.2 C 87 18 114/73 97 Room Air Resident Activity Tracking Resident Involvement: Resident Care Provided Care Provided: OB Delivery
[2022-06-26 08:20] LABS: BUN Creatinine Ratio 16.1 (10-20); Calcium 7.7 mg/dl (8.6-10.3); Creatinine Clr Calc Pharmacy 170.7 ml/min; Potassium 4.2 mmol/L (3.5-5.1)
[2022-06-26] MEDS: PRENATAL VITAMIN 1 TAB PO SCH (08:49)
[2022-06-26] MEDS: DOCUSATE SODIUM 100 MG CAP PO SCH (08:49)
[2022-06-26] MEDS: SODIUM CHLORIDE 1 GM TABLET PO SCH (08:51)
[2022-06-26] MEDS ORDERED: HYDROCORTISONE 10 MG TAB PO SCH ×7 (09:00→14:00)
[2022-06-26] MEDS: IBUPROFEN 600 MG TAB PO PRN (09:35)
[2022-06-26] MEDS: ACETAMINOPHEN 500 MG TAB PO PRN (09:35)
--- NOTE | 2022-06-26 18:14 | Billing Data ---
Date of Service June 26, 2022 Coding Level of Care Code 06388 SUB INP/OBS CARE
--- NOTE | 2022-06-26 20:55 | Hospitalist Progress Note ---
Date of Service June 26, 2022 Assessment & Plan (1) Pituitary apoplexy: Plan: 37F , now PPD #3 s/p @38.2 weeks. Consulted for management of status migrainosus. Still following, managing new onset hyponatremia. Signing off. Pituitary apoplexy -Discovered incidentally following hyponatremia PPD2 s/p . Initially consulted for status migrainosus. Hyponatremia on PPD #2 only presenting finding (estimated blood loss 800 mL) without hypotension or lethargy. -SIADH suspected after concentrated urine discovered on urine sodium, urine osmolality labs. Pituitary MRI ordered after severely low serum cortisol discovered on subsequent a.m. labs. -Discussed with endocrinology; recommended initiating hydrocortisone, levothyroxine tablets. Endocrinology will schedule for outpatient f/u. Hyponatremia Na 126, unknown baseline. Suspect hypotonic hypovolemic hyponatremia in context of labor/delivery. May be contributing to migraine. -S/p 1L NSS bolus as stated above -Na decreased to 119 today. 120 today s/p 3g Na tabs. -Serum osm 244. Ur osm 571. Ur Na 106. Suspect SIADH. Ordered cortisol, TSH to determine etiology. -AM cortisol severely decreased at 0.71. Ordered brain pituitary MRI, labs (ACTH, free T3, T4, prolactin). Brain MRI confirmed dx of Be syndrome. -Gave cortisol and * Continue fluid restriction 1L * Na tabs 2g tid * Continue BMP q4h x24h * MRI report, await pending. SIADH -Suspect due to severely concentrated urine, in the context of acute hyponatremia. -Initially managed with sodium tablets 3 g total for 24 hours. -Serum sodium improved only slightly to 120, from 119. -Diagnostic work-up revealed severely low serum cortisol of 0.71. Additional labs ordered, which are now pending. 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 * ACTH, free T3, free T4, prolactin labs pending * Endocrinology consult placed. Awaiting recommendations regarding management. Status migrainosus Multifactorial, most likely due to acute on chronic anemia in context of labor/delivery as well as dehydration. Patient has had well controlled blood pressure throughout and post- course, thus low likelihood that pre-eclampsia is contributing to ongoing headache. Patient does report bilateral arm and feet numbness which is atypical per her migraines, although neuro exam reassuring. - checked CMP and Mg with abnormalities listed and addressed below - CT head w/o contrast without abnormalities - s/p 1L NSS bolus to address dehydration, Compazine 5 mg IV - s/p Zofran PRN, PRN Ibuprofen, PRN Fioricet and PRN Hydrocodone/Acetaminophen - recommended reestablishing with Neurology as outpatient for reinstitution of Migraine ppx treatments. Hypomagnesemia Mg 1.4, in context of above. May also be contributing to migraine. - Trend daily. Repleted as needed. (2) Hyponatremia: (3) SIADH (syndrome of inappropriate ADH production): (4) Hypomagnesemia: (5) Encounter for care and examination after delivery: (6) Status migrainosus: Abram Campbell is a 37 y/o female who is PPD #2 following delivery at 38w2d. Admission and Anticipated Discharge Date Admission Date: June 22, 2022 Supervising Physician Co-Signing Physician Notes Chart reviewed, case discussed with resident physician, case discussed with patient's [id number] (patient was in the shower whenever I came to see and was otherwise discharged). updated PCP personally. labs reviewed. orders written for f/u BMP. answered questions of . otherwise as above. endocrine will be calling for f/u. BMP friday. PCP next week. Subjective Appears significantly improved symptomatically. Tolerating breakfast well on arrival at bedside. Ambulating well w/o difficulty. Hyponatremia resolved on morning labs following confirmation of Be syndrome on pituitary MRI, administration of hydrocortisone, levothyroxine. We are officially signing off. Thank you for allowing us to participate in the care of this patient. Review of Systems Review of Systems: All systems reviewed & are unremarkable except as noted in HPI & below Physical Exam Physical Exam: General: No acute distress HEENT: PERRLA. Normal conjunctiva, anicteric sclera. Oropharynx normal. Respiratory: Normal respiratory effort, CTABL. Cardiovascular: RRR without murmurs, gallops, or rubs. No pedal edema. GI: Soft abdomen with normal bowel sounds heard on auscultation. Nontender x4 quadrants Neuro: Alert and oriented x3. Results & Data Results & Data Vital Signs (Past 12 Hours) Vital Signs Temp Pulse Resp BP Pulse Ox 06/26/22 14:42 36.4 C L 81 18 117/78 100 Resident Activity Tracking Resident Involvement: Resident Care Provided Care Provided: Adult Hospital Medicine
--- NOTE | 2022-06-27 20:29 | Billing Data ---
Date of Service June 27, 2022 Coding Level of Care Code 82234 SUB INP/OBS CARE
== END 2022-06-26 14:30 | disposition home or self-care (01) | DRG 768 ==
LOC: OPB 23:38 → 4S1 23:39 → 4E2 06-22 15:00
DX: G43.911 Migraine, unspecified, intractable, with status migrainosus; D64.9 Anemia, unspecified; E22.2 Syndrome of inappropriate secretion of antidiuretic hormone; O70.20 Third degree perineal laceration during delivery, unspecified; Z88.0 Allergy status to penicillin; O69.1XX0 Labor and delivery complicated by cord around neck, with compression, not applicable or unspecified; O72.1 Other immediate postpartum hemorrhage; E83.42 Hypomagnesemia; O90.89 Other complications of the puerperium, not elsewhere classified; O90.81 Anemia of the puerperium; Z20.822 Contact with and (suspected) exposure to COVID-19; Z37.0 Single live birth; Z88.5 Allergy status to narcotic agent; E86.0 Dehydration; E23.0 Hypopituitarism; Z3A.38 38 weeks gestation of pregnancy